=== PATIENT | male | born 1955 | race Caucasian/White ===

== ENCOUNTER 2023-02-26 10:52 | Day surgery (SDC) | payer OTHER ==
[2023-02-26] VITALS (15 sets, daily range): BP systolic 119–141; BP diastolic 73–95; PULSE 55–77; RESP 12–20
[~2023-02-26] VITALS: Ht 170.2 cm; Wt 62.1 kg
[~2023-02-26 10:52] MED LIST: ACET-2079 PO; SENN8.6T32 PO; VITAMIN B1 PO
[2023-02-26] MEDS ORDERED: 0.9%NACL 1000ML 1,000 ML IV ONE (11:17)
[2023-02-26] MEDS ORDERED: INDOMETHACIN 100 MG SUPP.RECT RC ONE (13:00)
[2023-02-26] MEDS ORDERED: IOHEXOL-350 50ML VIAL IV ONE (14:38)
[2023-02-26] MEDS ORDERED: ROCURONIUM BROMIDE 10MG/1ML 5ML VL ONE (15:04)
[2023-02-26] MEDS ORDERED: SUCCINYLCHOLINE CHLORIDE 20 MG/ML 10 ML VIAL ONE (15:04)
[2023-02-26] MEDS ORDERED: LIDOCAINE PF 100MG/5ML (2%) SYRINGE 5ML ONE (15:04)
[2023-02-26] MEDS ORDERED: GLYCOPYRROLATE 0.2 MG/ML 5 ML VIAL ONE (15:04)
[2023-02-26] MEDS ORDERED: PROPOFOL 10 MG/ML 20ML VIAL IV ONE (15:04)
[2023-02-26] MEDS ORDERED: FENTANYL CITRATE PF 50 MCG/1 ML 2ML VIAL ONE (15:04)
[2023-02-26] MEDS ORDERED: KETAMINE 50MG/ML SYRINGE 50 MG/ML DISP.SYRIN ONE (15:05)
[2023-02-26] MEDS ORDERED: ONDANSETRON 4MG INJ ONE (15:05)
[2023-02-26] MEDS ORDERED: MIDAZOLAM HCL 1 MG/ML 2ML VIAL ONE (15:05)
[2023-02-26] MEDS ORDERED: CEFTRIAXONE 1G VIAL ONE (17:00)
[2023-02-26] MEDS ORDERED: LEVO-70 PO (17:50)
== END 2023-02-26 18:15 | disposition home or self-care (01) ==
LOC: DAH 10:52 → ENDO 10:52
PROVIDERS: ATTEND Internal Medicine Gastroenterology
DX: R93.2 Abnormal findings on diagnostic imaging of liver and biliary tract (principal); K83.1 Obstruction of bile duct; K83.8 Other specified diseases of biliary tract; K21.9 Gastro-esophageal reflux disease without esophagitis; Z79.899 Other long term (current) drug therapy; Z79.01 Long term (current) use of anticoagulants; Z98.890 Other specified postprocedural states; Z90.89 Acquired absence of other organs; Z87.891 Personal history of nicotine dependence
CPT/HCPCS: 43276; 88300; 88305; 74328; 43264; 43273; 43261; J3010; J0330; J7030 ×2; J3490 ×3; J2001; J0696; J2250; J2704; J2405; Q9967; A4649; A4215 ×2; A4223; A4657; A7002; A4222; A4221; A4663; A4606; C1769; C1874; C1773; 74330